=== PATIENT | female | born 1990 | race Caucasian/White ===

== ENCOUNTER 2023-08-10 11:10 | Outpatient (CLI) | payer BC, SELFPAY ==
--- NOTE | ~2023-08-10 | MR_ITS ---
EXAMINATION: MR brain/brain stem wo/w con DATE: 08/10/2023 12:16 INDICATION: Hyperprolactinemia. TECHNIQUE: Magnetic resonance imaging (MRI) of the brain and brainstem was performed without and with 14 mL MultiHance intravenous contrast. COMPARISON: None. FINDINGS: The pituitary is normal in size with height of 6 mm. There is no intracranial hemorrhage, a cute infarction, or abnormal intracranial mass lesion. The ventricles are normal in size. There is mi ld mucosal thickening in the paranasal sinuses. The mastoid air cells are normal. The orbits are norm al. IMPRESSION: 1. Normal brain. Normal pituitary. Reviewed, dictated and finalized at location A. K SIDING APPLICATOR
== END 2023-08-10 11:11 ==
PROVIDERS: PCP Family Medicine; Visit Provider Obstetrics & Gynecology
DX: E22.1 Hyperprolactinemia (principal)
CPT/HCPCS: 70553; A9577

== ENCOUNTER → 2023-08-24 12:42 | Outpatient (CLI) | payer BC, SELFPAY ==
--- NOTE | ~2023-08-24 | MR_ITS ---
EXAMINATION: MR pelvis wo/w con DATE: 08/24/2023 13:43 INDICATION: Uterine septum TECHNIQUE: Magnetic resonance imaging (MRI) of the pelvis was performed without and with 14 mL Multih ance intravenous contrast. Full-field sequences of the pelvis included axial and coronal T2-weighted SS FSE, coronal 2D FIESTA, axial T1-weighted FSPGR, axial dual-echo T1-weighted FSPGR and axial T1 we ighted LAVA. Small field of view sequences included axial, sagittal and coronal T2-weighted FSE cent ered on the uterus and adnexa. Postcontrast sequences included a time course axial T1-weighted LAVA with full-field of view of the pelvis. COMPARISON: None. FINDINGS: Normal retroverted uterus with single endometrial cavity with endometrial complex thickness of 6 mm. No evident uterine septation. Normal bilateral ovaries with a few very small T2 hyperintense follicle s at both ovaries and larger 1.8 cm peripherally enhancing likely corpus luteum cyst in the left ovar y. Visualized bowels are unremarkable. No free fluid in the pelvis. No pathologically enlarged pelvic or inguinal lymphadenopathy. Bones are unremarkable. IMPRESSION: 1. Unremarkable pelvic ultrasound including normal uterus with no evident uterine septation. Reviewed, dictated and finalized at location L. CHING DEPARTMENT SUPERVISOR IMPRESSION: 1. Unremarkable pelvic ultrasound including normal uterus with no evident uteri ne septation.
== END ==
PROVIDERS: PCP Family Medicine; Visit Provider Obstetrics & Gynecology
DX: Q51.28 Other and unspecified doubling of uterus (principal)
CPT/HCPCS: 72197; A9577